=== PATIENT | male | born 1960 | race Asian ===

== ENCOUNTER 2020-03-24 08:31 | Outpatient (CLI) | payer OTHER | END 2020-03-24 23:59 | disposition home or self-care (01) | LOC: LAB 08:31 | PROVIDERS: ATTEND Student in an Organized Health Care Education/Training Program | DX: Z01.812 Encounter for preprocedural laboratory examination (principal); Z11.59 Encounter for screening for other viral diseases; M75.112 Incomplete rotator cuff tear or rupture of left shoulder, not specified as traumatic ==

== ENCOUNTER 2020-03-29 06:38 | Day surgery (SDC) | payer OTHER ==
--- NOTE | 2020-03-29 07:10 | NUR ---
PT. HERE AT 0655 AM AND NOW LEAVING FOR OR.SKIN WARM AND DRY AND ALERT AND ORIENTED.IV STARTED BY TARIFF COMPILING CLERK WOOL HAT FINISHER.
--- NOTE | 2020-03-29 07:11 | NUR ---
MS RN NOTES PATIENT ARRIVED ON FLOOR AT 0650. PATIENT IS ALERT AND ORIENTED X 4. BREATHING EVEN AND UNLABORED ON ROOM AIR. SHOWS NO SIGNS OF ACUTE RESPIRATORY DISTRESS, NO ACUTE PAIN. IV ON RAC 20G ITS CLEAN DRY AND INTACT. SHOWS NO SIGNS OF INFILTRATION, NO REDNESS. BELONGINGS CHECKLIST COMPLETED, AND SURGERY CONSENT COMPLETED. SAFETY PRECAUTIONS IN PLACE. BED IN LOWEST POSITION, LOCKED, AND CALL LIGHT KEPT WITHIN REACH. WILL ENDORSE TO ONCOMING NURSE. LEFT FLOOR FOR SURGERY AT 0710.
[2020-03-29] MEDS ORDERED: ANESTHESIA TRAY IN PYXIS 1 EA TRAY MC ONE (07:13)
[2020-03-29] MEDS ORDERED: EPINEPHRINE (1:1000) 1 MG/ML AMPUL ONE (07:21)
[2020-03-29] MEDS ORDERED: MIDAZOLAM HCL 2 MG/2ML VIAL ONE (07:26)
[2020-03-29] MEDS ORDERED: FENTANYL PF 250MCG/5ML AMPUL ONE (07:27)
--- NOTE | 2020-03-29 07:27 | NUR ---
MS RN NOTES PT MIGUEET AT BEDSIDE 1ST DRAWER
[2020-03-29] MEDS ORDERED: ROCURONIUM BROMIDE 50 MG/5 ML ONE (07:28)
[2020-03-29] MEDS ORDERED: HYDROMORPHONE INJ 2 MG/ML DISP.SYRIN ONE (07:28)
[2020-03-29] MEDS ORDERED: BUPIVACAINE 0.25% 75 MG/30 ML VIAL ONE (07:31)
--- NOTE | 2020-03-29 10:50 | NUR ---
RETURNED TO RM. VERY GROGGY,LT. SHOULDER DRESSING DRY AND INTACT. DENIES PAIN SLING IN PACE.VS STABLE.DENIES PAIN.
[2020-03-29 12:00] VITALS: BP 123/63
--- NOTE | 2020-03-29 13:00 | NUR ---
CALLING IN TO CHECK ON PT. MADE AWARE FOR MD F/UP APPT. IN 2 WEEKS.ALSO INFORMED NON WT. BEARING LT UPPER EXT.AWARE TO LEAVE SLING IN PLACE.
[2020-03-29] MEDS ORDERED: METF-442 PO (13:05)
[2020-03-29] MEDS ORDERED: AMLO5TAB4 PO (13:05)
[2020-03-29] MEDS ORDERED: INSU100V7 SQ (13:05)
[2020-03-29] MEDS ORDERED: ATOR10TA PO (13:05)
[2020-03-29] MEDS ORDERED: ZIPR20CA2 PO (13:05)
[2020-03-29] MEDS ORDERED: GLIP10TA11 PO (13:05)
--- NOTE | 2020-03-29 14:40 | NUR ---
VS STABLE.ATE LUNCH,NO VOID YET.
--- NOTE | 2020-03-29 15:04 | NUR ---
SEE GRAPHIC NOTE WITH POST-OP VITALS LISTED.PT. UP TO BATHROOM,VOIDED ,GIVEN DISCHARGE INSTRUCTIONS .PRINT OUT OF ARTHROSCOPIC SURGERY GIVEN TO PT.HEP LOCK OUT. BANDAGE TO SITE. DOWNSTAIRS WAITING IN CAR.TRANSPORTED TO LOBBY VIA W/C ACCOMPANIED BY MACHINE FILLER SERVICER.PT. INFORMED OF REPORTABLE S/S AND TO GO TO URGENT CARE OR ER WITH PROBLEMS.
== END 2020-03-29 16:00 | disposition home or self-care (01) ==
LOC: DS 06:38 → UNDOADMIN 06:42 → MED 06:42 → UNDODISIN 15:05 → DS 16:00
PROVIDERS: ATTEND Student in an Organized Health Care Education/Training Program
DX: M25.812 Other specified joint disorders, left shoulder (principal); I10 Essential (primary) hypertension; E11.9 Type 2 diabetes mellitus without complications; Z79.899 Other long term (current) drug therapy; M67.912 Unspecified disorder of synovium and tendon, left shoulder
CPT/HCPCS: 23430; 29822; 82962; 87081; A4217; A4565; C1713; J0171; J0690; J1170; J2250; J2405; J2704; J2765; J3010; J3490 ×3; G0378